=== PATIENT | female | born 1985 | race Caucasian/White ===

== ENCOUNTER → 2019-03-05 | Outpatient (CLI) | payer OTHER ==
[2019-03-05 11:07] LABS: Basophils # (auto) 0.1 uL; Eosinophils # (auto) 0.3 uL; Lymphocytes # (auto) 1.2 uL; Lymphocytes % (auto) 26.8 % (10.0-50.0)
[2019-03-05 11:09] LABS: Basophils % (auto) 2.3 % (0.0-2.0); Eosinophils % (auto) 6.1 % (0.0-7.0); Hematocrit 42.9 % (36.0-46.0); Hemoglobin 14.5 g/dL (12.2-16.2); Mean Corpuscular Hemoglobin 34.3 pg (28.0-32.0); Mean Corpuscular Hgb Conc. 33.7 g/dL (32.0-36.0); Mean Corpuscular Volume 101.9 fL (80.0-100.0); Monocytes # (auto) 0.4 uL; Monocytes % (auto) 7.7 % (0.0-12.0); Neutrophils # (auto) 2.6 uL; Neutrophils % (auto) 57.1 % (37.0-80.0); Platelet Count (auto) 214 10^3/uL (140-450); Red Blood Cells 4.21 10^6/uL (4.0-5.20); Red Cell Distribution Width 13.5 % (11.8-14.3); White Blood Cell 4.6 10^3/uL (4.4-10.8)
[2019-03-05 11:22] LABS: Urine Bacteria NONE SEEN /hpf (None Seen); Urine Blood Negative /uL (Negative); Urine Specific Gravity 1.019 (1.001-1.035); Urine WBC 1 /hpf (0 - 5)
[2019-03-05 13:23] LABS: Albumin 3.7 g/dL (3.4-5.0); Potassium 4.2 mmol/L (3.5-5.1)
[2019-03-05 13:28] LABS: BUN/Creatinine Ratio 22.4; Bilirubin, Total 0.5 mg/dL (0.2-1.0); Total Protein 7.1 g/dL (6.4-8.2)
== END | disposition home or self-care (01) ==
LOC: LAB 09:10
PROVIDERS: ATTEND Family Medicine
DX: K52.9 Noninfective gastroenteritis and colitis, unspecified (principal); K20.9 Esophagitis, unspecified; K21.9 Gastro-esophageal reflux disease without esophagitis; Z83.3 Family history of diabetes mellitus; Z86.39 Personal history of other endocrine, nutritional and metabolic disease
CPT/HCPCS: 36415; 80053; 80061; 81001; 83036; 84443; 85025

== ENCOUNTER → 2019-03-27 | Outpatient (CLI) | payer OTHER ==
[2019-03-27 10:50] LABS: Basophils # (auto) 0.1 uL; Eosinophils # (auto) 0.2 uL; Eosinophils % (auto) 4.1 % (0.0-7.0); Monocytes # (auto) 0.4 uL; Platelet Count (auto) 206 10^3/uL (140-450)
[2019-03-27 10:52] LABS: Basophils % (auto) 1.8 % (0.0-2.0); Hemoglobin 15.1 g/dL (12.2-16.2); Lymphocytes % (auto) 18.3 % (10.0-50.0); Mean Corpuscular Hemoglobin 34.2 pg (28.0-32.0); Mean Corpuscular Hgb Conc. 33.5 g/dL (32.0-36.0); Mean Corpuscular Volume 102.3 fL (80.0-100.0); Monocytes % (auto) 7.7 % (0.0-12.0); Neutrophils # (auto) 3.8 uL; Neutrophils % (auto) 68.1 % (37.0-80.0); Red Cell Distribution Width 13.8 % (11.8-14.3); White Blood Cell 5.5 10^3/uL (4.4-10.8)
[2019-03-27 13:49] LABS: Leuteinizing Hormone 9.9 IU/L
[2019-03-27 13:50] LABS: Follicle Stimulating Hormone 11.4 IU/L (SEE BELOW)
== END | disposition home or self-care (01) ==
LOC: LAB 10:13
PROVIDERS: ATTEND Obstetrics & Gynecology
DX: N93.9 Abnormal uterine and vaginal bleeding, unspecified (principal)
CPT/HCPCS: 36415; 82670; 83001; 83002; 84403; 84443; 85025

== ENCOUNTER 2019-07-26 08:37 | Day surgery (SDC) | payer OTHER ==
[2019-07-19 10:04] LABS: Basophils # (auto) 0.1 uL; Basophils % (auto) 1.3 % (0.0-2.0); Eosinophils # (auto) 0.4 uL; Neutrophils # (auto) 3.5 uL
[2019-07-19 10:06] LABS: Eosinophils % (auto) 6.7 % (0.0-7.0); Hematocrit 42.8 % (36.0-46.0); Hemoglobin 14.7 g/dL (12.2-16.2); Lymphocytes # (auto) 1.5 uL; Mean Corpuscular Hemoglobin 35.2 pg (28.0-32.0); Mean Corpuscular Hgb Conc. 34.4 g/dL (32.0-36.0); Mean Corpuscular Volume 102.6 fL (80.0-100.0); Monocytes # (auto) 0.5 uL; Monocytes % (auto) 8.6 % (0.0-12.0); Neutrophils % (auto) 58.4 % (37.0-80.0); Nucleated Red Blood Cells % 0.1 %; Platelet Count (auto) 196 10^3/uL (140-450); Red Blood Cells 4.17 10^6/uL (4.0-5.20); Red Cell Distribution Width 13.1 % (11.8-14.3); White Blood Cell 5.9 10^3/uL (4.4-10.8)
[2019-07-19 10:21] LABS: INR < 0.93 (0.9-1.15); Partial Thromboplastin Time 29.6 sec (23.64-32.05)
[~2019-07-26] VITALS: Ht 175.3 cm; Wt 66.7 kg
[~2019-07-26 08:37] MED LIST: DEXL30CA4 PO; DIC10C PO; ELUX1TAB2 PO; ONDA-144 PO; PANT40TA2 PO; SUCR1TAB38 PO
[2019-07-26] MEDS ORDERED: SODIUM CHLORIDE LOCK 10 ML ONE (10:09)
[2019-07-26] MEDS ORDERED: diphenhdrAMINE HCL 50 MG/1 ML VL ONE (10:10)
[2019-07-26] MEDS ORDERED: LIDOCAINE VISCOUS 2% 15ML UD ONE (10:18)
[2019-07-26] MEDS: fentaNYL CITRATE 100 MCG/2 ML VL ONE ×2 (10:36→10:39)
[2019-07-26] MEDS: MIDAZOLAM HCL 5 MG/ML-1ML VIAL ONE ×2 (10:36→10:39)
[2019-07-26 11:19] VITALS: BP 116/86
== END 2019-07-26 11:27 | disposition home or self-care (01) ==
LOC: GI 08:37
PROVIDERS: ATTEND Internal Medicine Gastroenterology
DX: K92.0 Hematemesis (principal); K29.50 Unspecified chronic gastritis without bleeding; K21.9 Gastro-esophageal reflux disease without esophagitis; K58.2 Mixed irritable bowel syndrome; K29.80 Duodenitis without bleeding; Z79.899 Other long term (current) drug therapy
CPT/HCPCS: 36415; 43239; 81025; 85025; 85610; 85730; 88305; 88342; J1200; J2250; J3010; J7030

== ENCOUNTER 2019-08-02 05:50 | Day surgery (SDC) | payer OTHER ==
[2019-07-31 10:27] LABS: Basophils # (auto) 0.1 uL; Eosinophils # (auto) 0.3 uL; Eosinophils % (auto) 5.8 % (0.0-7.0); Hemoglobin 13.7 g/dL (12.2-16.2); Lymphocytes # (auto) 1.6 uL; Monocytes # (auto) 0.4 uL; Nucleated Red Blood Cells % 0.1 %; Red Cell Distribution Width 12.7 % (11.8-14.3)
[2019-07-31 10:30] LABS: Basophils % (auto) 1.4 % (0.0-2.0); Hematocrit 40.3 % (36.0-46.0); Lymphocytes % (auto) 29.2 % (10.0-50.0); Mean Corpuscular Hemoglobin 35.1 pg (28.0-32.0); Mean Corpuscular Hgb Conc. 34.1 g/dL (32.0-36.0); Mean Corpuscular Volume 102.9 fL (80.0-100.0); Monocytes % (auto) 7.9 % (0.0-12.0); Neutrophils % (auto) 55.7 % (37.0-80.0); Platelet Count (auto) 201 10^3/uL (140-450); Red Blood Cells 3.92 10^6/uL (4.0-5.20); White Blood Cell 5.3 10^3/uL (4.4-10.8)
[2019-07-31 10:31] LABS: Urine Amorphous Crystal MOD /hpf (None Seen); Urine Bacteria NONE SEEN /hpf (None Seen); Urine Blood Negative /uL (Negative); Urine Specific Gravity 1.021 (1.001-1.035); Urine WBC 2 /hpf (0 - 5)
[2019-07-31 10:37] LABS: INR 1.02 (0.9-1.15); Partial Thromboplastin Time 30.4 sec (23.64-32.05)
[2019-07-31 10:59] LABS: Potassium 3.7 mmol/L (3.5-5.1)
[2019-07-31 11:08] LABS: Albumin 3.8 g/dL (3.4-5.0); BUN/Creatinine Ratio 23.4; Bilirubin, Total 0.5 mg/dL (0.2-1.0); Calcium 8.7 mg/dL (8.5-10.1); Total Protein 6.9 g/dL (6.4-8.2)
[~2019-08-02] VITALS: Ht 175.3 cm; Wt 65.8 kg
[2019-08-02] MEDS ORDERED: ceFAZolin 1GM/50ML 50 ML IV ONE (06:49)
[2019-08-02] MEDS ORDERED: LIDOCAINE 1% (LOCAL ANESTH.) PF 5ml SDV ONE (07:19)
[2019-08-02] MEDS ORDERED: SUCCINYLCHOLINE CHLORIDE 20 MG/ML 10ML VIAL IV ONE (07:20)
[2019-08-02] MEDS ORDERED: PROPOFOL 10 MG/ML 20 ML IV ONE (07:24)
[2019-08-02] MEDS ORDERED: ROCURONIUM 10MG/ML 10ML VIAL IV ONE (07:24)
[2019-08-02] MEDS ORDERED: MIDAZOLAM HCL 1MG/1ML-2 ML VIAL ONE (07:24)
[2019-08-02] MEDS ORDERED: ONDANSETRON HCL 4 MG/2 ML VIAL IV PRN ×2 (07:30→08:15)
[2019-08-02] MEDS ORDERED: HYDROmorphone HCL 2 MG/ML VL IV PRN ×2 (07:30)
[2019-08-02] MEDS ORDERED: NALOXONE HCL 0.4 MG/ML VIAL IV PRN (07:30)
[2019-08-02] MEDS ORDERED: METOCLOPRAMIDE HCL 5MG/ml INJ 2ml VIAL ONE (07:34)
[2019-08-02] MEDS ORDERED: fentaNYL CITRATE 100 MCG/2 ML VL ONE (07:48)
[2019-08-02] MEDS ORDERED: GLYCOPYRROLATE 0.2 MG/ML 1ML VIAL ONE (08:07)
[2019-08-02] MEDS ORDERED: NEOSTIGMINE 1 MG/ML INJ (10mg/10ML VIAL) ONE (08:07)
[2019-08-02] MEDS ORDERED: LACTATED RINGER'S 1,000 ML IV SCH (08:13)
[2019-08-02 08:46] VITALS: BP 139/85
== END 2019-08-02 09:00 | disposition home or self-care (01) ==
LOC: SUR 05:50
PROVIDERS: ATTEND Obstetrics & Gynecology
DX: N93.8 Other specified abnormal uterine and vaginal bleeding (principal); F17.210 Nicotine dependence, cigarettes, uncomplicated
CPT/HCPCS: 36415; 58563; 80053; 81001; 84702; 85025; 85610; 85730; 86850; 86900; 86901; 88305; J0330; J0690; J2250; J2704; J2765; J3010

== ENCOUNTER 2019-11-26 16:08 | Inpatient (IN) | payer OTHER ==
[~2019-11-26] VITALS: Ht 175.3 cm; Wt 70.4 kg
[~2019-11-26 16:08] MED LIST changes: -DIC10C PO
[2019-11-26] MEDS ORDERED: MORPHINE SULFATE 4 MG/ML SYR/VIAL IV ONE (17:15)
[2019-11-26] MEDS ORDERED: SODIUM CHLORIDE 0.9% 1,000 ML IV ONE (17:15)
[2019-11-26] MEDS ORDERED: ONDANSETRON HCL 4 MG/2 ML VIAL IV ONE (17:15)
[2019-11-26 17:27] LABS: Basophils # (auto) 0.1 10 ^3/uL (0-0.2); Basophils % (auto) 1.2 % (0.0-2.0); Lymphocytes # (auto) 1.7 10 ^3/uL (0.4-5.4); Neutrophils # (auto) 3.5 10 ^3/uL (1.6-8.6); Nucleated Red Blood Cells % 0.1 %; Platelet Count (auto) 199 10^3/uL (140-450)
[2019-11-26 17:27] LABS: Urine Bacteria NONE SEEN /hpf (None Seen); Urine Blood Negative /uL (Negative); Urine Mucus FEW (None Seen); Urine Specific Gravity 1.017 (1.001-1.035); Urine WBC 1 /hpf (0 - 5)
[2019-11-26 17:29] LABS: Eosinophils # (auto) 0.3 10 ^3/uL (0-0.8); Eosinophils % (auto) 4.2 % (0.0-7.0); Hematocrit 43.2 % (36.0-46.0); Hemoglobin 14.9 g/dL (12.2-16.2); Lymphocytes % (auto) 28.7 % (10.0-50.0); Mean Corpuscular Hemoglobin 35.4 pg (28.0-32.0); Mean Corpuscular Hgb Conc. 34.5 g/dL (32.0-36.0); Mean Corpuscular Volume 102.6 fL (80.0-100.0); Monocytes # (auto) 0.5 10 ^3/uL (0-1.3); Monocytes % (auto) 7.6 % (0.0-12.0); Neutrophils % (auto) 58.3 % (37.0-80.0); Red Blood Cells 4.21 10^6/uL (4.0-5.20); Red Cell Distribution Width 12.7 % (11.8-14.3)
[2019-11-26 17:45] LABS: Albumin 4.2 g/dL (3.4-5.0); Calcium 8.7 mg/dL (8.5-10.1); Potassium 3.6 mmol/L (3.5-5.1)
[2019-11-26 17:48] LABS: BUN/Creatinine Ratio 11.6; Bilirubin, Total 0.6 mg/dL (0.2-1.0); Total Protein 7.7 g/dL (6.4-8.2)
[2019-11-26] MEDS ORDERED: HYDROcodone-ACET 5/325MG TAB PO PRN (21:15)
[2019-11-26] MEDS ORDERED: TEMAZEPAM 15 MG CAP PO PRN (21:15)
[2019-11-26] MEDS ORDERED: MORPHINE SULF INJ 2 MG/ML SYRINGE 1ML IV PRN (21:15)
[2019-11-26] MEDS ORDERED: ONDANSETRON HCL 4 MG/2 ML VIAL IV PRN (21:15)
[2019-11-26] MEDS ORDERED: ACETAMINOPHEN 325 MG TAB PO PRN (21:15)
[2019-11-26 22:50] VITALS: BP 107/65
--- NOTE | 2019-11-26 22:50 | NUR ---
MS admit from [facility] admitted to tele/MS unit. Patient accompanied by friend Ted via wheelchair. Patient transferred from wheelchair to bed with steady gait. Patient oriented to TUNG MACE, primary RN, unit, room, bed, and unit policies regarding patient care and visiting hours. Patient weighed by bedscale and encouraged to call as needed. All questions and concerns addressed, patient verbalized understanding. Bed is locked in lowest position, side rails x 2 are up, call light is within reach, and seizure precautions in place.
[2019-11-26] MEDS: FAMOTIDINE 20 MG TAB PO SCH (23:34)
[2019-11-27] MEDS ORDERED: SUCR1SUS5 PO (00:56)
[2019-11-27] MEDS ORDERED: [UNRECOGNIZED DRUG - CODE] PO (00:56)
[2019-11-27] MEDS ORDERED: LACT30003 PO ×2 (00:56)
[2019-11-27] MEDS ORDERED: LEVE250T18 PO (00:56)
[2019-11-27] MEDS ORDERED: PANT40TA2 PO (00:56)
[2019-11-27 05:00] VITALS: BP 95/52
[2019-11-27 06:06] VITALS: BP 103/69
--- NOTE | 2019-11-27 06:10 | NUR ---
Pain Patient is complaining of pressure like pain to right upper abdomen (pain scale 3/10). Patient offered pain medications, patient refused pain medications and requested a heating pack instead. Heating pack provided to patient.
[2019-11-27 06:49] LABS: Basophils # (auto) 0.1 10 ^3/uL (0-0.2); Eosinophils # (auto) 0.3 10 ^3/uL (0-0.8); Lymphocytes # (auto) 1.2 10 ^3/uL (0.4-5.4); Monocytes # (auto) 0.4 10 ^3/uL (0-1.3); Neutrophils # (auto) 3.2 10 ^3/uL (1.6-8.6); White Blood Cell 5.2 10^3/uL (4.4-10.8)
[2019-11-27 06:53] LABS: Basophils % (auto) 1.4 % (0.0-2.0); Eosinophils % (auto) 5.2 % (0.0-7.0); Hemoglobin 14.3 g/dL (12.2-16.2); Lymphocytes % (auto) 23.5 % (10.0-50.0); Mean Corpuscular Hemoglobin 35.6 pg (28.0-32.0); Mean Corpuscular Hgb Conc. 34.2 g/dL (32.0-36.0); Mean Corpuscular Volume 104.3 fL (80.0-100.0); Monocytes % (auto) 8.1 % (0.0-12.0); Neutrophils % (auto) 61.8 % (37.0-80.0); Nucleated Red Blood Cells % 0.1 %; Platelet Count (auto) 179 10^3/uL (140-450); Red Blood Cells 4.02 10^6/uL (4.0-5.20); Red Cell Distribution Width 12.6 % (11.8-14.3)
[2019-11-27 07:06] LABS: BUN/Creatinine Ratio 11.7; Calcium 8.4 mg/dL (8.5-10.1); Potassium 4.3 mmol/L (3.5-5.1)
--- NOTE | 2019-11-27 07:30 | NUR ---
Opening Shift Note Assumed care of patient, awake and alert. No S/S of distress/SOB or pain. Bed in lowest and locked position with side rails up x2 and call light with in reach. Instructed on POC and to call for assist PRN, will continue to monitor for changes Q1hr and PRN.
[2019-11-27 09:43] VITALS: BP 100/62
[2019-11-27] MEDS: FAMOTIDINE 20 MG TAB PO SCH (10:51)
[2019-11-27] MEDS ORDERED: PANTOPRAZOLE 40 MG TAB PO ONE (12:00)
[2019-11-27 13:00] VITALS: BP 121/62
[2019-11-27 14:19] LABS: Alcohol, Urine < 3.0 mg/dL (0-5); Amphetamine Screen, Urine NEGATIVE (NEGATIVE); Barbiturate Scree,Urine NEGATIVE (NEGATIVE); Benzodiazephine Screen, Urine NEGATIVE (NEGATIVE); Cannabinoid Screen, Urine NEGATIVE (NEGATIVE); Cocaine Screen, Urine NEGATIVE (NEGATIVE); Opiate Scree,Urine NEGATIVE (NEGATIVE); Phencyclidine Screen, Urine NEGATIVE (NEGATIVE)
[2019-11-27] MEDS: D5W/ SOD CHL 0.9%/KCL 20MEQ 1,000 ML IV SCH (16:30)
[2019-11-27 16:57] VITALS: BP 106/61
--- NOTE | 2019-11-27 19:00 | NUR ---
Opening Shift Note Assumed care of patient, awake and alert. No S/S of distress/SOB or pain. Instructed on POC and to call for assist PRN, will continue to monitor for changes Q1hr and PRN.
[2019-11-27] MEDS: levETIRAcetam 500 MG TAB PO SCH (21:52)
[2019-11-27] MEDS: PANTOPRAZOLE 40 MG TAB PO SCH (21:53)
[2019-11-27 22:21] VITALS: BP 102/65
[2019-11-28] MEDS: D5W/ SOD CHL 0.9%/KCL 20MEQ 1,000 ML IV SCH ×2 (01:21→14:25)
[2019-11-28 05:11] VITALS: BP 106/65
[2019-11-28 09:00] VITALS: BP 114/70
[2019-11-28] MEDS: levETIRAcetam 500 MG TAB PO SCH (09:01)
[2019-11-28] MEDS ORDERED: SODIUM CHLORIDE LOCK 10 ML ONE (09:21)
[2019-11-28] MEDS ORDERED: LIDOCAINE VISCOUS 2% 15ML UD ONE (09:21)
[2019-11-28] MEDS ORDERED: diphenhdrAMINE HCL 50 MG/1 ML VL ONE (09:22)
[2019-11-28] MEDS: PANTOPRAZOLE 40 MG TAB PO SCH (10:00)
[2019-11-28 10:17] LABS: INR 1.07 (0.9-1.15); Partial Thromboplastin Time 30.9 sec (23.64-32.05)
--- NOTE | 2019-11-28 10:30 | NUR ---
PATIENT TAKEN TO PRE-OP.
[2019-11-28] MEDS: MIDAZOLAM HCL 5 MG/ML-1ML VIAL ONE ×2 (10:41→10:44)
[2019-11-28] MEDS: fentaNYL CITRATE 100 MCG/2 ML VL ONE ×2 (10:41→10:44)
--- NOTE | 2019-11-28 11:00 | NUR ---
RECEIVED REPORT FROM POST OP. AWAITING PT ARRIVAL.
[2019-11-28] MEDS ORDERED: SUCRALFATE 1 GM/10 ML ORAL SUSP PO SCH (11:30)
--- NOTE | 2019-11-28 11:30 | NUR ---
SPOKE TO DR. JAIN. PER DR. JAIN, SHE SPOKE TO DR. FAROOQ AND THE PATIENT IS CLEAR FOR DISCHARGE FROM DR. FAROOQ.
[2019-11-28] MEDS ORDERED: SUCR1TAB38 OR (11:46)
[2019-11-28] MEDS ORDERED: KEP500T PO (11:46)
[2019-11-28] MEDS ORDERED: PANT40T PO (11:46)
[2019-11-28 12:54] VITALS: BP 114/70
[2019-11-28 13:00] VITALS: BP 111/70
--- NOTE | 2019-11-28 14:23 | NUR ---
Discharge instructions given as ordered. Encourage to follow up with PMD as instructed. All questions and concerns addressed. Patient verbalized understanding. Medication reconciliation form completed and copy given to patient. No Home medications held in Pharmacy. Pt refused vaccines. IV removed with catheter intact, pressure dressing applied.
--- NOTE | 2019-11-28 14:38 | NUR ---
Patient refused wheelchair and assistance. Patient walked off unit with all personal belongings, accompanied by family member. No distress noted at time of departure.
== END 2019-11-28 14:38 | disposition home or self-care (01) | DRG 392 ==
LOC: ER 16:08 → OVERFLOW 16:09 → EAST 22:50
PROVIDERS: ADMIT Nurse Practitioner; ATTEND Internal Medicine
PROC: 0DB68ZX Excision of Stomach, Via Natural or Artificial Opening Endoscopic, Diagnostic (ICD-10-PCS; principal; 2019-11-28 10:38)
DX: K29.70 Gastritis, unspecified, without bleeding (principal); R16.0 Hepatomegaly, not elsewhere classified; K58.9 Irritable bowel syndrome, unspecified; E16.2 Hypoglycemia, unspecified; Z88.8 Allergy status to other drugs, medicaments and biological substances; Z91.040 Latex allergy status; Z82.49 Family history of ischemic heart disease and other diseases of the circulatory system
CPT/HCPCS: 36415; 43239; 74176; 76705; 78226; 80048; 80053; 80307; 81001; 82150; 83690; 84702; 85025; 85610; 85730; 96360; G0378; J2250

== ENCOUNTER 2019-11-30 18:39 | Emergency (ER) | payer OTHER ==
[~2019-11-30 18:39] MED LIST changes: -DEXL30CA4 PO; +KEP500T PO; +LACT30003 PO; +LEVE250T18 PO; -ONDA-144 PO; +PANT40T PO; +SUCR1SUS5 PO; +SUCR1TAB38 OR; -SUCR1TAB38 PO; +[UNRECOGNIZED DRUG - CODE] PO
[2019-11-30 19:19] LABS: Basophils # (auto) 0.1 10 ^3/uL (0-0.2); Eosinophils # (auto) 0.1 10 ^3/uL (0-0.8); Lymphocytes # (auto) 1.2 10 ^3/uL (0.4-5.4); Platelet Count (auto) 198 10^3/uL (140-450)
[2019-11-30 19:21] LABS: Basophils % (auto) 3.3 % (0.0-2.0); Eosinophils % (auto) 1.8 % (0.0-7.0); Hematocrit 43.7 % (36.0-46.0); Hemoglobin 15.3 g/dL (12.2-16.2); Lymphocytes % (auto) 26.3 % (10.0-50.0); Mean Corpuscular Hemoglobin 35.8 pg (28.0-32.0); Mean Corpuscular Hgb Conc. 35.1 g/dL (32.0-36.0); Mean Corpuscular Volume 102.1 fL (80.0-100.0); Monocytes # (auto) 0.2 10 ^3/uL (0-1.3); Monocytes % (auto) 5.2 % (0.0-12.0); Neutrophils # (auto) 2.9 10 ^3/uL (1.6-8.6); Neutrophils % (auto) 63.4 % (37.0-80.0); Nucleated Red Blood Cells % 0.1 %; Red Blood Cells 4.28 10^6/uL (4.0-5.20); Red Cell Distribution Width 12.9 % (11.8-14.3); White Blood Cell 4.5 10^3/uL (4.4-10.8)
[2019-11-30 19:41] LABS: Calcium 8.9 mg/dL (8.5-10.1); Potassium 4.2 mmol/L (3.5-5.1)
[2019-11-30 19:44] LABS: BUN/Creatinine Ratio 14.6; Bilirubin, Total 0.3 mg/dL (0.2-1.0); Total Protein 7.5 g/dL (6.4-8.2)
[2019-12-01 02:22] LABS: Urine Pregnacy Test Negative (Negative)
[2019-12-01 02:31] LABS: Urine Bacteria NONE SEEN /hpf (None Seen); Urine Blood Negative /uL (Negative); Urine Mucus FEW (None Seen); Urine Specific Gravity 1.027 (1.001-1.035); Urine WBC 3 /hpf (0 - 5)
[2019-12-01 02:33] LABS: Amphetamine Screen, Urine NEGATIVE (NEGATIVE); Barbiturate Scree,Urine NEGATIVE (NEGATIVE); Benzodiazephine Screen, Urine POSITIVE (NEGATIVE); Cannabinoid Screen, Urine NEGATIVE (NEGATIVE); Cocaine Screen, Urine NEGATIVE (NEGATIVE); Opiate Scree,Urine NEGATIVE (NEGATIVE); Phencyclidine Screen, Urine NEGATIVE (NEGATIVE)
[2019-12-01] MEDS ORDERED: PROMETHAZINE HCL 25 MG/ML 1ML IV ONE (03:15)
[2019-12-01] MEDS ORDERED: SODIUM CHLORIDE 0.9% 2,000 ML IV ONE (03:15)
[2019-12-01] MEDS ORDERED: IOHEXOL 300 MG/ML 100ML BOTTLE IJ ONE (03:17)
[2019-12-01 05:00] VITALS: BP 115/64
== END 2019-12-01 06:00 | disposition home or self-care (01) ==
LOC: ER 18:42
DX: K29.00 Acute gastritis without bleeding (principal); E86.0 Dehydration; K59.00 Constipation, unspecified; R11.2 Nausea with vomiting, unspecified; E11.9 Type 2 diabetes mellitus without complications; K50.90 Crohn's disease, unspecified, without complications; Z91.011 Allergy to milk products; Z91.040 Latex allergy status; Z79.899 Other long term (current) drug therapy
CPT/HCPCS: 36415; 74177; 80053; 80307; 81001; 81025; 85025; 96361; 96374; 99285; J7030

== ENCOUNTER → 2020-05-29 | Outpatient (CLI) | payer OTHER ==
[~2020-05-29] MED LIST changes: +SUCR1TAB22 OR; -SUCR1TAB38 OR
[2020-05-29 15:00] LABS: Cholesterol 139 mg/dL (< 200)
[2020-05-29 15:03] LABS: HDL Cholesterol 65 mg/dL (40-59); LDL Cholesterol 75 mg/dL (< 100); Triglycerides 152 mg/dL (< 150)
== END | disposition home or self-care (01) ==
LOC: LAB 13:57
PROVIDERS: ATTEND Internal Medicine
DX: E11.9 Type 2 diabetes mellitus without complications (principal)
CPT/HCPCS: 36415; 80061; 82043; 82607; 83036

== ENCOUNTER 2020-11-22 17:29 | Emergency (ER) | payer BC, OTHER ==
[~2020-11-22] VITALS: Ht 177.8 cm; Wt 64.9 kg
[2020-11-22 18:35] LABS: Basophils # (auto) 0.1 10 ^3/uL (0-0.2); Basophils % (auto) 1.7 % (0.0-2.0); Eosinophils # (auto) 0.2 10 ^3/uL (0-0.8); Eosinophils % (auto) 4.1 % (0.0-7.0); Hematocrit 41.5 % (36.0-46.0); Hemoglobin 14.4 g/dL (12.2-16.2); Lymphocytes % (auto) 21.1 % (10.0-50.0); Mean Corpuscular Hemoglobin 36.3 pg (28.0-32.0); Mean Corpuscular Hgb Conc. 34.6 g/dL (32.0-36.0); Mean Corpuscular Volume 104.8 fL (80.0-100.0); Monocytes # (auto) 0.6 10 ^3/uL (0-1.3); Monocytes % (auto) 12.5 % (0.0-12.0); Neutrophils # (auto) 2.8 10 ^3/uL (1.6-8.6); Neutrophils % (auto) 60.6 % (37.0-80.0); Platelet Count (auto) 183 10^3/uL (140-450); Red Blood Cells 3.96 10^6/uL (4.0-5.20); Red Cell Distribution Width 12.6 % (11.8-14.3); White Blood Cell 4.6 10^3/uL (4.4-10.8)
[2020-11-22 18:51] LABS: Chloride 108 mmol/L (98-107); Potassium 4.2 mmol/L (3.5-5.1); Sodium 141 mmol/L (136-145)
[2020-11-22 19:01] LABS: Alanine Aminotransferase 30 U/L (13-56); Albumin 3.8 g/dL (3.4-5.0); Alkaline Phosphatase 71 U/L (45-117); Anion Gap 8 (5-15); Aspartate Aminotransferase 25 U/L (15-37); BUN/Creatinine Ratio 15.3; Bilirubin, Total 0.2 mg/dL (0.2-1.0); Blood Urea Nitrogen 9 mg/dL (7-18); Calcium 8.4 mg/dL (8.5-10.1); Carbon Dioxide 25 mmol/L (21-32); GFR African American 149 mL/min; GFR Non-African American 123 mL/min; Glucose 80 mg/dL (74-106); Total Protein 7.6 g/dL (6.4-8.2)
[2020-11-22] MEDS ORDERED: CYANOCOBALAMIN (B-12) 1000 MCG/1 ML VIAL SUBCUT ONE (20:00)
[2020-11-22 23:02] VITALS: BP 117/77
== END 2020-11-23 00:01 | disposition home or self-care (01) ==
LOC: ER 17:29
DX: G62.9 Polyneuropathy, unspecified (principal)
CPT/HCPCS: 36415; 70450; 80053; 83880; 84484; 85025; 85379

== ENCOUNTER → 2020-12-24 | Day surgery (SDC) | payer BC ==
[2020-12-21 09:52] LABS: Basophils # (auto) 0.1 10 ^3/uL (0-0.2); Eosinophils # (auto) 0.3 10 ^3/uL (0-0.8); Lymphocytes # (auto) 1.4 10 ^3/uL (0.4-5.4); Monocytes # (auto) 0.5 10 ^3/uL (0-1.3); Neutrophils # (auto) 3.8 10 ^3/uL (1.6-8.6)
[2020-12-21 09:54] LABS: Basophils % (auto) 1.3 % (0.0-2.0); Eosinophils % (auto) 5.4 % (0.0-7.0); Hematocrit 39.6 % (36.0-46.0); Hemoglobin 13.9 g/dL (12.2-16.2); Lymphocytes % (auto) 23.3 % (10.0-50.0); Mean Corpuscular Hemoglobin 36.3 pg (28.0-32.0); Mean Corpuscular Volume 103.7 fL (80.0-100.0); Monocytes % (auto) 8.2 % (0.0-12.0); Neutrophils % (auto) 61.8 % (37.0-80.0); Nucleated Red Blood Cells % 0.1 %; Platelet Count (auto) 210 10^3/uL (140-450); Red Blood Cells 3.82 10^6/uL (4.0-5.20); Red Cell Distribution Width 12.7 % (11.8-14.3); White Blood Cell 6.2 10^3/uL (4.4-10.8)
[2020-12-21 10:21] LABS: INR 0.93 (0.9-1.15); Partial Thromboplastin Time 31.2 sec (23.0-31.2)
[2020-12-21 11:01] LABS: Urine Bacteria NONE SEEN /hpf (None Seen); Urine Blood Negative /uL (Negative); Urine Specific Gravity 1.007 (1.001-1.035); Urine WBC 1 /hpf (0 - 5)
[2020-12-21 11:41] LABS: Albumin 4.1 g/dL (3.4-5.0); Calcium 9.4 mg/dL (8.5-10.1); Potassium 3.7 mmol/L (3.5-5.1)
[2020-12-21 11:46] LABS: Bilirubin, Total 0.3 mg/dL (0.2-1.0); Total Protein 7.6 g/dL (6.4-8.2)
[2020-12-21 15:52] LABS: BUN/Creatinine Ratio 29.8
[~2020-12-24] VITALS: Ht 175.3 cm; Wt 63.0 kg
[~2020-12-24] MED LIST changes: +ACCU-CHEK COMFORT CURVE STRIP VI ONE; +DOXAPRAM HCL 20 MG/ML 20ML VIAL INJ IV ONE; +GLYCOPYRROLATE 0.2 MG/ML 1ML VIAL ONE; +HYDROmorphone HCL 2 MG/ML VL IV PRN; -KEP500T PO; -LEVE250T18 PO; +LIDOCAINE 1% HCL (LOCAL ANESTH.) INJ 20ML MDV ONE; +MEPERIDINE HCL (25 MG/ML) 1ML VIAL ONE; +MIDAZOLAM HCL 1MG/1ML-2 ML VIAL ONE; +MORPHINE SULFATE 4 MG/ML SYR/VIAL IV PRN; +NEOSTIGMINE 1 MG/ML INJ (10mg/10ML VIAL) ONE; +ONDA-180 PO; +ONDANSETRON HCL 4 MG/2 ML VIAL IV PRN; +ONDANSETRON HCL 4 MG/2 ML VIAL ONE; -PANT40TA2 PO; +ROCURONIUM 10MG/ML 10ML VIAL IV ONE; +SODIUM CHLORIDE LOCK 10 ML ONE; +SUCCINYLCHOLINE CHLORIDE 20 MG/ML 10ML VIAL IV ONE; -SUCR1SUS5 PO; +fentaNYL CITRATE 100 MCG/2 ML VL IV PRN; +fentaNYL CITRATE 100 MCG/2 ML VL ONE
[2020-12-24 08:55] VITALS: BP 113/67
== END | disposition home or self-care (01) ==
LOC: SUR 06:11
PROVIDERS: ATTEND Otolaryngology
DX: J03.91 Acute recurrent tonsillitis, unspecified (principal); J35.01 Chronic tonsillitis; K21.9 Gastro-esophageal reflux disease without esophagitis; E11.9 Type 2 diabetes mellitus without complications; Z20.822 Contact with and (suspected) exposure to COVID-19; Z98.890 Other specified postprocedural states; Z88.1 Allergy status to other antibiotic agents; Z91.040 Latex allergy status; Z79.899 Other long term (current) drug therapy; Z86.16 Personal history of COVID-19
CPT/HCPCS: 36415; 42826; 80053; 81001; 84702; 85025; 85610; 85730; J0330; J2001; J2175; J2250; J2405; J3010; U0003

== ENCOUNTER → 2021-10-21 | Outpatient (CLI) | payer OTHER, BC ==
[~2021-10-21] MED LIST changes: -ACCU-CHEK COMFORT CURVE STRIP VI ONE; -DOXAPRAM HCL 20 MG/ML 20ML VIAL INJ IV ONE; -GLYCOPYRROLATE 0.2 MG/ML 1ML VIAL ONE; -HYDROmorphone HCL 2 MG/ML VL IV PRN; -LIDOCAINE 1% HCL (LOCAL ANESTH.) INJ 20ML MDV ONE; -MEPERIDINE HCL (25 MG/ML) 1ML VIAL ONE; -MIDAZOLAM HCL 1MG/1ML-2 ML VIAL ONE; -MORPHINE SULFATE 4 MG/ML SYR/VIAL IV PRN; -NEOSTIGMINE 1 MG/ML INJ (10mg/10ML VIAL) ONE; -ONDANSETRON HCL 4 MG/2 ML VIAL IV PRN; -ONDANSETRON HCL 4 MG/2 ML VIAL ONE; -ROCURONIUM 10MG/ML 10ML VIAL IV ONE; -SODIUM CHLORIDE LOCK 10 ML ONE; -SUCCINYLCHOLINE CHLORIDE 20 MG/ML 10ML VIAL IV ONE; -fentaNYL CITRATE 100 MCG/2 ML VL IV PRN; -fentaNYL CITRATE 100 MCG/2 ML VL ONE
[2021-10-21 09:48] LABS: Basophils # (auto) 0.1 10 ^3/uL (0-0.2); Basophils % (auto) 1.2 % (0.0-2.0); Eosinophils # (auto) 0.3 10 ^3/uL (0-0.8); Nucleated Red Blood Cells % 0.1 %
[2021-10-21 09:53] LABS: Eosinophils % (auto) 5.6 % (0.0-7.0); Hematocrit 40.5 % (36.0-46.0); Hemoglobin 13.7 g/dL (12.2-16.2); Lymphocytes # (auto) 1.5 10 ^3/uL (0.4-5.4); Lymphocytes % (auto) 27.6 % (10.0-50.0); Mean Corpuscular Hemoglobin 35.3 pg (28.0-32.0); Mean Corpuscular Hgb Conc. 33.9 g/dL (32.0-36.0); Mean Corpuscular Volume 104.3 fL (80.0-100.0); Monocytes # (auto) 0.5 10 ^3/uL (0-1.3); Monocytes % (auto) 8.6 % (0.0-12.0); Red Blood Cells 3.89 10^6/uL (4.0-5.20); Red Cell Distribution Width 12.1 % (11.8-14.3); White Blood Cell 5.3 10^3/uL (4.4-10.8)
[2021-10-21 10:11] LABS: Albumin 4.1 g/dL (3.4-5.0); Calcium 9.3 mg/dL (8.5-10.1); Potassium 3.9 mmol/L (3.5-5.1)
[2021-10-21 10:16] LABS: BUN/Creatinine Ratio 24.1; Bilirubin, Total 0.4 mg/dL (0.2-1.0); Total Protein 7.5 g/dL (6.4-8.2)
== END | disposition home or self-care (01) ==
LOC: LAB 09:14
PROVIDERS: ATTEND Internal Medicine
DX: Z00.00 Encounter for general adult medical examination without abnormal findings (principal); Z11.9 Encounter for screening for infectious and parasitic diseases, unspecified
CPT/HCPCS: 36415; 80053; 80061; 82043; 83036; 84443; 85025

== ENCOUNTER → 2022-09-14 | Outpatient (CLI) | payer BC ==
[2022-09-14 08:32] LABS: Basophils # (auto) 0.1 10 ^3/uL (0-0.2); Eosinophils # (auto) 0.4 10 ^3/uL (0-0.8); Monocytes # (auto) 0.4 10 ^3/uL (0-1.3); Neutrophils # (auto) 2.9 10 ^3/uL (1.6-8.6); White Blood Cell 5.6 10^3/uL (4.4-10.8)
[2022-09-14 08:37] LABS: Basophils % (auto) 1.1 % (0.0-2.0); Eosinophils % (auto) 6.5 % (0.0-7.0); Hematocrit 39.7 % (36.0-46.0); Hemoglobin 13.8 g/dL (12.2-16.2); Lymphocytes # (auto) 1.8 10 ^3/uL (0.4-5.4); Lymphocytes % (auto) 32.8 % (10.0-50.0); Mean Corpuscular Hemoglobin 36.5 pg (28.0-32.0); Mean Corpuscular Hgb Conc. 34.9 g/dL (32.0-36.0); Mean Corpuscular Volume 104.5 fL (80.0-100.0); Monocytes % (auto) 7.9 % (0.0-12.0); Neutrophils % (auto) 51.7 % (37.0-80.0); Nucleated Red Blood Cells % 0.1 %; Red Cell Distribution Width 12.2 % (11.8-14.3)
[2022-09-14 08:49] LABS: Urine Bacteria FEW /hpf (None Seen); Urine Blood Negative /uL (Negative); Urine Specific Gravity 1.024 (1.001-1.035); Urine WBC <1 /hpf (0 - 5)
[2022-09-14 08:59] LABS: Albumin 4.2 g/dL (3.4-5.0); Calcium 9.5 mg/dL (8.5-10.1); Potassium 3.8 mmol/L (3.5-5.1)
[2022-09-14 09:04] LABS: BUN/Creatinine Ratio 17.3; Bilirubin, Total 0.4 mg/dL (0.2-1.0); Total Protein 7.3 g/dL (6.4-8.2)
== END | disposition home or self-care (01) ==
LOC: LAB 08:14
PROVIDERS: ATTEND Internal Medicine
DX: Z00.00 Encounter for general adult medical examination without abnormal findings (principal); E11.9 Type 2 diabetes mellitus without complications; E53.8 Deficiency of other specified B group vitamins; E78.5 Hyperlipidemia, unspecified
CPT/HCPCS: 36415; 80053; 80061; 81001; 82043; 82607; 83036; 84443; 85025

== ENCOUNTER → 2022-10-21 | Outpatient (CLI) | payer BC ==
[2022-10-21 13:33] LABS: Albumin 4.6 g/dL (3.4-5.0)
[2022-10-21 13:37] LABS: Bilirubin, Direct 0.1 mg/dL (0-0.2); Bilirubin, Total 0.5 mg/dL (0.2-1.0)
== END | disposition home or self-care (01) ==
LOC: LAB 13:15
PROVIDERS: ATTEND Internal Medicine
DX: E78.5 Hyperlipidemia, unspecified (principal)
CPT/HCPCS: 36415; 80076

== ENCOUNTER → 2022-12-15 | Outpatient (CLI) | payer BC ==
[2022-12-15 16:35] LABS: Albumin 3.7 g/dL (3.4-5.0)
[2022-12-15 16:40] LABS: Alanine Aminotransferase 33 U/L (13-56); Alkaline Phosphatase 80 U/L (45-117); Aspartate Aminotransferase 15 U/L (15-37); Bilirubin, Direct < 0.1 mg/dL (0-0.2); Bilirubin, Total 0.2 mg/dL (0.2-1.0); Cholesterol 130 mg/dL (< 200); HDL Cholesterol 53 mg/dL (40-59); LDL Cholesterol 66 mg/dL (< 100); Total Protein 7.1 g/dL (6.4-8.2); Triglycerides 201 mg/dL (< 150)
== END | disposition home or self-care (01) ==
LOC: LAB 15:36
PROVIDERS: ATTEND Internal Medicine
DX: E78.5 Hyperlipidemia, unspecified (principal)
CPT/HCPCS: 36415; 80061; 80076

== ENCOUNTER → 2023-03-15 | Outpatient (CLI) | payer BC ==
[2023-03-15 10:20] LABS: Cholesterol 130 mg/dL (< 200); HDL Cholesterol 54 mg/dL (40-59); LDL Cholesterol 52 mg/dL (< 100); Triglycerides 240 mg/dL (< 150)
== END | disposition home or self-care (01) ==
LOC: LAB 08:32
PROVIDERS: ATTEND Internal Medicine
DX: E11.9 Type 2 diabetes mellitus without complications (principal); E78.5 Hyperlipidemia, unspecified
CPT/HCPCS: 36415; 80061; 83036

== ENCOUNTER 2023-05-11 07:16 | Emergency (ER) | payer BC, OTHER ==
[~2023-05-11] VITALS: Ht 175.3 cm; Wt 75.9 kg
[2023-05-11 08:30] VITALS: BP 144/81; PULSE 108; RESP 18; TEMP 98; O2SAT 95
[2023-05-11] MEDS ORDERED: KETOROLAC TROMETH 60MG/2ML VIAL IM ONE (09:00)
== END 2023-05-11 09:14 | disposition home or self-care (01) ==
LOC: ER 07:16
DX: M23.92 Unspecified internal derangement of left knee (principal); G89.29 Other chronic pain; M25.562 Pain in left knee; F41.9 Anxiety disorder, unspecified; K21.9 Gastro-esophageal reflux disease without esophagitis; E78.5 Hyperlipidemia, unspecified; I10 Essential (primary) hypertension; F17.210 Nicotine dependence, cigarettes, uncomplicated; Z88.1 Allergy status to other antibiotic agents; Z88.8 Allergy status to other drugs, medicaments and biological substances; Z79.899 Other long term (current) drug therapy
CPT/HCPCS: 96372; 99283; J1885

== ENCOUNTER 2023-05-20 16:49 | Emergency (ER) | payer BC ==
[~2023-05-20] VITALS: Ht 175.3 cm; Wt 75.1 kg
[2023-05-20 16:59] VITALS: TEMP 97
[2023-05-20 17:24] LABS: Basophils # (auto) 0.1 10 ^3/uL (0-0.2); Basophils % (auto) 1.3 % (0.0-2.0); Eosinophils # (auto) 0.2 10 ^3/uL (0-0.8); Eosinophils % (auto) 4.7 % (0.0-7.0); Hematocrit 43.9 % (36.0-46.0); Hemoglobin 14.9 g/dL (12.2-16.2); Lymphocytes % (auto) 41.2 % (10.0-50.0); Mean Corpuscular Hemoglobin 34.8 pg (28.0-32.0); Mean Corpuscular Volume 102.4 fL (80.0-100.0); Monocytes # (auto) 0.3 10 ^3/uL (0-1.3); Monocytes % (auto) 6.5 % (0.0-12.0); Neutrophils # (auto) 2.2 10 ^3/uL (1.6-8.6); Neutrophils % (auto) 46.3 % (37.0-80.0); Red Blood Cells 4.29 10^6/uL (4.0-5.20); Red Cell Distribution Width 12.3 % (11.8-14.3); White Blood Cell 4.8 10^3/uL (4.4-10.8)
[2023-05-20 17:43] LABS: Alanine Aminotransferase 30 U/L (7-40); Albumin 4.4 g/dL (3.2-4.8); Alkaline Phosphatase 68 U/L (46-116); Anion Gap 9.6 (5-15); Aspartate Aminotransferase 25 U/L (13-40); BUN/Creatinine Ratio 15.1 (10.0-20.0); Bilirubin, Total 0.3 mg/dL (0.2-1.0); Blood Urea Nitrogen 11 mg/dL (9-23); Carbon Dioxide 21.4 mmol/L (20-30); Chloride 109 mmol/L (98-107); Glucose 136 mg/dL (74-106); Potassium 3.9 mmol/L (3.5-5.1); Sodium 140 mmol/L (136-145)
[2023-05-20] MEDS ORDERED: HYDR-4902 PO (18:30)
[2023-05-20] MEDS ORDERED: DexAMETHasone SOD PHOS 10MG/1ML VIAL INJ IM ONE (18:30)
[2023-05-20] MEDS ORDERED: CYCL-839 PO (18:30)
[2023-05-20] MEDS ORDERED: KETOROLAC TROMETH 30 MG/ML 1ML VIAL IV ONE (18:30)
[2023-05-20] MEDS ORDERED: IBUP1TAB5 PO (18:30)
[2023-05-20] MEDS ORDERED: KETOROLAC TROMETH 60MG/2ML VIAL IM ONE (18:45)
[2023-05-20 19:05] VITALS: BP 133/62; PULSE 87; RESP 18; O2SAT 99
== END 2023-05-20 19:28 | disposition home or self-care (01) ==
LOC: ER 16:49
DX: S86.912A Strain of unspecified muscle(s) and tendon(s) at lower leg level, left leg, initial encounter (principal); G89.29 Other chronic pain; M25.562 Pain in left knee; R60.0 Localized edema; F41.9 Anxiety disorder, unspecified; K21.9 Gastro-esophageal reflux disease without esophagitis; E78.5 Hyperlipidemia, unspecified; I10 Essential (primary) hypertension; F17.210 Nicotine dependence, cigarettes, uncomplicated; Z88.8 Allergy status to other drugs, medicaments and biological substances; Z79.899 Other long term (current) drug therapy; X58.XXXA Exposure to other specified factors, initial encounter; Y93.89 Activity, other specified; Y92.89 Other specified places as the place of occurrence of the external cause; Y99.8 Other external cause status
CPT/HCPCS: 29505; 36415; 80053; 82962; 85025; 93971; 96372; 99285; J1100; J1885

== ENCOUNTER 2023-05-23 18:53 | Inpatient (IN) | payer BC ==
[~2023-05-23] VITALS: Ht 177.8 cm; Wt 83.8 kg
[~2023-05-23 18:53] MED LIST changes: +CYCL-839 PO; +HYDR-4902 PO; +IBUP1TAB5 PO
[2023-05-23 20:42] LABS: Basophils # (auto) 0.1 10 ^3/uL (0-0.2); Eosinophils # (auto) 0.2 10 ^3/uL (0-0.8); Hemoglobin 14.9 g/dL (12.2-16.2); Lymphocytes # (auto) 2.2 10 ^3/uL (0.4-5.4); Mean Corpuscular Hemoglobin 35.4 pg (28.0-32.0); Monocytes # (auto) 0.7 10 ^3/uL (0-1.3); Neutrophils # (auto) 4.7 10 ^3/uL (1.6-8.6); Red Blood Cells 4.21 10^6/uL (4.0-5.20)
[2023-05-23 20:44] LABS: Basophils % (auto) 1.2 % (0.0-2.0); Eosinophils % (auto) 2.2 % (0.0-7.0); Hematocrit 42.5 % (36.0-46.0); Lymphocytes % (auto) 28.3 % (10.0-50.0); Mean Corpuscular Hgb Conc. 35.1 g/dL (32.0-36.0); Mean Corpuscular Volume 100.9 fL (80.0-100.0); Monocytes % (auto) 8.8 % (0.0-12.0); Neutrophils % (auto) 59.5 % (37.0-80.0); Red Cell Distribution Width 12.3 % (11.8-14.3); White Blood Cell 7.8 10^3/uL (4.4-10.8)
[2023-05-23 20:48] LABS: Alanine Aminotransferase 39 U/L (7-40); Albumin 4.6 g/dL (3.2-4.8); Alkaline Phosphatase 110 U/L (46-116); Aspartate Aminotransferase 55 U/L (13-40); BUN/Creatinine Ratio 24.3 (10.0-20.0); Bilirubin, Total 0.5 mg/dL (0.2-1.0); Blood Urea Nitrogen 17 mg/dL (9-23); Calcium 8.9 mg/dL (8.7-10.4); Chloride 104 mmol/L (98-107); Glucose 114 mg/dL (74-106); Potassium 3.8 mmol/L (3.5-5.1); Total Protein 7.3 g/dL (5.7-8.2)
[2023-05-23 20:49] LABS: Sodium 135 mmol/L (136-145)
[2023-05-23 21:08] LABS: CRP High Sensitivity < 0.02 mg/dL (<1.0)
[2023-05-23 21:25] LABS: Erythrocyte Sedimentation Rate 1 mm/hr (0-20)
[2023-05-23 21:34] LABS: Lactic Acid w/Reflex 2.1 mmol/L (0.4-2.0)
[2023-05-23] MEDS ORDERED: SODIUM CHLORIDE 0.9% 1,000 ML IV ONE (22:30)
[2023-05-23] MEDS ORDERED: levoFLOXacin 500MG 100 ML IV ONE (23:45)
[2023-05-23] MEDS ORDERED: ONDANSETRON HCL 4 MG/2 ML VIAL IV PRN (23:45)
[2023-05-23] MEDS ORDERED: HYDROcodone-ACET 5/325MG TAB PO PRN (23:45)
[2023-05-23] MEDS ORDERED: TEMAZEPAM 15 MG CAP PO PRN (23:45)
[2023-05-24] VITALS (8 sets, daily range): BP systolic 117–129; BP diastolic 78–94; PULSE 89–113; RESP 13–20; TEMP 98.1–98.2; O2SAT 96–100
[2023-05-24 01:20] LABS: Urine Bacteria FEW /hpf (None Seen); Urine Blood Negative /uL (Negative); Urine Clarity Clear (Clear); Urine Color Yellow (Yellow); Urine Protein, UAD Negative (Negative); Urine Specific Gravity 1.016 (1.001-1.035); Urine Urobilinogen Normal (Negative); Urine WBC 11 /hpf (0 - 5); Urine pH 5.5 (5.0-8.0)
[2023-05-24 05:55] LABS: Anion Gap 9.1 (5-15); Carbon Dioxide 22.9 mmol/L (20-30); Chloride 105 mmol/L (98-107); Potassium 3.8 mmol/L (3.5-5.1); Sodium 137 mmol/L (136-145)
[2023-05-24 05:56] LABS: Calcium 8.7 mg/dL (8.5-10.1)
[2023-05-24 06:00] LABS: Basophils # (auto) 0 10 ^3/uL (0-0.2); Hemoglobin 14.2 g/dL (12.2-16.2); Lymphocytes % (auto) 30.8 % (10.0-50.0); Monocytes # (auto) 0.4 10 ^3/uL (0-1.3); Neutrophils # (auto) 2.8 10 ^3/uL (1.6-8.6)
[2023-05-24 06:01] LABS: BUN/Creatinine Ratio 17.6 (10.0-20.0); Blood Urea Nitrogen 9 mg/dL (9-23); Glucose 97 mg/dL (74-106)
[2023-05-24 06:03] LABS: Basophils % (auto) 0.9 % (0.0-2.0); Eosinophils # (auto) 0.3 10 ^3/uL (0-0.8); Hematocrit 40.1 % (36.0-46.0); Lymphocytes # (auto) 1.5 10 ^3/uL (0.4-5.4); Mean Corpuscular Hemoglobin 35.4 pg (28.0-32.0); Mean Corpuscular Hgb Conc. 35.3 g/dL (32.0-36.0); Mean Corpuscular Volume 100.4 fL (80.0-100.0); Monocytes % (auto) 7.9 % (0.0-12.0); Neutrophils % (auto) 55.4 % (37.0-80.0); Nucleated Red Blood Cells % 0.2 %
[2023-05-24] MEDS: ACETAMINOPHEN 325 MG TAB PO PRN ×3 (06:46→11:15)
[2023-05-24] MEDS: amLODIPine BESYLATE 5 MG TAB PO SCH (10:00)
[2023-05-24] MEDS: PANTOPRAZOLE 40 MG TAB PO SCH (10:00)
[2023-05-24] MEDS: levETIRAcetam 500 MG TAB PO SCH ×2 (10:00→21:15)
[2023-05-24] MEDS ORDERED: EPIN0.3I24 IM (10:44)
[2023-05-24] MEDS ORDERED: AMLO1TAB22 PO (10:44)
[2023-05-24] MEDS ORDERED: LEVE500T3 PO (10:44)
[2023-05-24] MEDS ORDERED: LEVE250T78 PO (10:44)
[2023-05-24] MEDS ORDERED: SUCR1TAB PO (10:44)
[2023-05-24] MEDS ORDERED: MELO-335 PO (10:44)
[2023-05-24] MEDS ORDERED: ATOR20TA50 PO (10:44)
[2023-05-24] MEDS: ENOXAPARIN SOD 40 MG/0.4 ML SYRINGE SC SCH (11:14)
[2023-05-24] MEDS: IBUPROFEN 600 MG TAB PO SCH ×2 (13:00→21:15)
[2023-05-24] MEDS ORDERED: cefTRIAXone 1GM/50ML D5W 50 ML IV ONE (14:45)
[2023-05-24] MEDS ORDERED: DEXTROSE (50%) 50ML SYRG IV PRN (16:00)
[2023-05-24] MEDS: InsuLIN REG 1unit/0.01ml Soln (100units/ml) SC SCH ×2 (17:00→21:51)
[2023-05-24] MEDS: ACCU-CHEK COMFORT CURVE STRIP VI SCH ×2 (17:35→21:15)
[2023-05-24] MEDS: ATORVASTATIN 20 MG TAB PO SCH (21:15)
[2023-05-24] MEDS ORDERED: levoFLOXacin 500MG 100 ML IV SCH (22:00)
[2023-05-25 05:00] VITALS: BP 114/88; PULSE 79; RESP 16; TEMP 98.2; O2SAT 98
[2023-05-25] MEDS: IBUPROFEN 600 MG TAB PO SCH ×3 (06:12→21:42)
[2023-05-25] MEDS: ACCU-CHEK COMFORT CURVE STRIP VI SCH ×4 (06:12→21:38)
[2023-05-25 06:25] LABS: Chloride 105 mmol/L (98-107); Potassium 3.9 mmol/L (3.5-5.1); Sodium 137 mmol/L (136-145)
[2023-05-25 06:26] LABS: Anion Gap 5.9 (5-15); Carbon Dioxide 26.1 mmol/L (20-30)
[2023-05-25] MEDS: InsuLIN REG 1unit/0.01ml Soln (100units/ml) SC SCH ×4 (06:27→21:42)
[2023-05-25 06:31] LABS: BUN/Creatinine Ratio 17.5 (10.0-20.0); Blood Urea Nitrogen 10 mg/dL (9-23); Glucose 113 mg/dL (74-106)
[2023-05-25 07:09] LABS: Basophils # (auto) 0 10 ^3/uL (0-0.2); Eosinophils # (auto) 0.3 10 ^3/uL (0-0.8); Hemoglobin 13.9 g/dL (12.2-16.2); Lymphocytes % (auto) 33.7 % (10.0-50.0); Mean Corpuscular Hgb Conc. 34.6 g/dL (32.0-36.0); Monocytes # (auto) 0.3 10 ^3/uL (0-1.3); Monocytes % (auto) 8.4 % (0.0-12.0)
[2023-05-25 07:12] LABS: Eosinophils % (auto) 6.5 % (0.0-7.0); Hematocrit 40.1 % (36.0-46.0); Lymphocytes # (auto) 1.3 10 ^3/uL (0.4-5.4); Mean Corpuscular Hemoglobin 35.6 pg (28.0-32.0); Mean Corpuscular Volume 102.8 fL (80.0-100.0); Neutrophils % (auto) 50.4 % (37.0-80.0); Nucleated Red Blood Cells % 0.1 %
[2023-05-25] MEDS: cefTRIAXone 1GM/50ML D5W 50 ML IV SCH (08:29)
[2023-05-25] MEDS: PANTOPRAZOLE 40 MG TAB PO SCH (08:30)
[2023-05-25] MEDS: levETIRAcetam 500 MG TAB PO SCH ×2 (08:30→21:37)
[2023-05-25] MEDS: ENOXAPARIN SOD 40 MG/0.4 ML SYRINGE SC SCH (08:30)
[2023-05-25 09:00] VITALS: BP 134/88; PULSE 77; RESP 18; TEMP 98.5; O2SAT 99
[2023-05-25] MEDS: amLODIPine BESYLATE 5 MG TAB PO SCH (09:01)
[2023-05-25 13:00] VITALS: BP 125/87; PULSE 79; RESP 16; TEMP 98.4; O2SAT 98
[2023-05-25] MEDS ORDERED: FUROSEMIDE 40 MG/4 ML VIAL IV ONE (16:00)
[2023-05-25 17:00] VITALS: BP 131/87; PULSE 100; RESP 18; TEMP 98.4; O2SAT 98
[2023-05-25] MEDS: ATORVASTATIN 20 MG TAB PO SCH (21:37)
[2023-05-25 22:00] VITALS: BP 123/85; PULSE 96; RESP 16; TEMP 97.8; O2SAT 98
[2023-05-26] VITALS (7 sets, daily range): BP systolic 111–124; BP diastolic 68–92; PULSE 96–109; RESP 16–18; TEMP 97.7–98; O2SAT 95–99
[2023-05-26 05:28] LABS: Calcium 9.3 mg/dL (8.7-10.4); Chloride 103 mmol/L (98-107); Potassium 3.8 mmol/L (3.5-5.1); Sodium 136 mmol/L (136-145)
[2023-05-26 05:34] LABS: BUN/Creatinine Ratio 21.9 (10.0-20.0); Blood Urea Nitrogen 14 mg/dL (9-23); Glucose 108 mg/dL (74-106)
[2023-05-26 06:13] LABS: Basophils # (auto) 0.1 10 ^3/uL (0-0.2); Eosinophils # (auto) 0.3 10 ^3/uL (0-0.8); Monocytes # (auto) 0.5 10 ^3/uL (0-1.3); Neutrophils # (auto) 3.1 10 ^3/uL (1.6-8.6); Red Cell Distribution Width 12.6 % (11.8-14.3)
[2023-05-26 06:16] LABS: Eosinophils % (auto) 5.6 % (0.0-7.0); Hematocrit 42.6 % (36.0-46.0); Hemoglobin 14.7 g/dL (12.2-16.2); Lymphocytes # (auto) 2.1 10 ^3/uL (0.4-5.4); Lymphocytes % (auto) 34.3 % (10.0-50.0); Mean Corpuscular Hemoglobin 35.3 pg (28.0-32.0); Mean Corpuscular Hgb Conc. 34.4 g/dL (32.0-36.0); Mean Corpuscular Volume 102.5 fL (80.0-100.0); Neutrophils % (auto) 51.1 % (37.0-80.0); Nucleated Red Blood Cells % 0.1 %; Red Blood Cells 4.16 10^6/uL (4.0-5.20)
[2023-05-26] MEDS: IBUPROFEN 600 MG TAB PO SCH ×2 (06:17→14:21)
[2023-05-26] MEDS: InsuLIN REG 1unit/0.01ml Soln (100units/ml) SC SCH ×3 (06:24→17:00)
[2023-05-26] MEDS: ACCU-CHEK COMFORT CURVE STRIP VI SCH ×3 (06:24→17:57)
[2023-05-26] MEDS: PANTOPRAZOLE 40 MG TAB PO SCH (09:15)
[2023-05-26] MEDS: levETIRAcetam 500 MG TAB PO SCH (09:15)
[2023-05-26] MEDS: amLODIPine BESYLATE 5 MG TAB PO SCH (09:16)
[2023-05-26] MEDS: ENOXAPARIN SOD 40 MG/0.4 ML SYRINGE SC SCH (09:16)
[2023-05-26] MEDS: cefTRIAXone 1GM/50ML D5W 50 ML IV SCH (09:17)
[2023-05-26] MEDS ORDERED: FUROSEMIDE 100 MG/10ML VIAL IV ONE (15:45)
[2023-05-26] MEDS ORDERED: NAPR-746 PO (15:58)
== END 2023-05-26 21:00 | disposition home or self-care (01) | DRG 603 ==
LOC: ER 18:53 → OVERFLOW 23:40 → CENTRAL 05-24 09:46
PROVIDERS: ADMIT Internal Medicine; ATTEND Student in an Organized Health Care Education/Training Program
DX: L03.116 Cellulitis of left lower limb (principal); N39.0 Urinary tract infection, site not specified; I10 Essential (primary) hypertension; F17.210 Nicotine dependence, cigarettes, uncomplicated; F41.9 Anxiety disorder, unspecified; K21.9 Gastro-esophageal reflux disease without esophagitis; E11.9 Type 2 diabetes mellitus without complications; M21.372 Foot drop, left foot; E78.5 Hyperlipidemia, unspecified; Z82.49 Family history of ischemic heart disease and other diseases of the circulatory system; Z83.3 Family history of diabetes mellitus; Z88.1 Allergy status to other antibiotic agents; Z91.040 Latex allergy status; R56.9 Unspecified convulsions
CPT/HCPCS: 36415; 72148; 73562; 73610; 73700; 73721; 80048; 80053; 81001; 81025; 82962; 83036; 83605; 83880; 84550; 85025; 85652; 86141; 87040; 87086; 87088; 87186; 93925; 93926; 93971; G0378; J0696; J1956

== ENCOUNTER → 2023-06-26 | Outpatient (CLI) | payer BC ==
[~2023-06-26] MED LIST changes: +AMLO1TAB22 PO; +ATOR20TA50 PO; +EPIN0.3I24 IM; +LEVE500T3 PO; +MELO-335 PO; +NAPR-746 PO
[2023-06-26 09:26] LABS: Eosinophils # (auto) 0.2 10 ^3/uL (0-0.8); Hemoglobin 12.5 g/dL (12.2-16.2); Lymphocytes # (auto) 1.1 10 ^3/uL (0.4-5.4); Monocytes # (auto) 0.5 10 ^3/uL (0-1.3); Neutrophils # (auto) 3.5 10 ^3/uL (1.6-8.6); White Blood Cell 5.3 10^3/uL (4.4-10.8)
[2023-06-26 09:28] LABS: Basophils # (auto) 0.1 10 ^3/uL (0-0.2); Basophils % (auto) 1.2 % (0.0-2.0); Eosinophils % (auto) 3.6 % (0.0-7.0); Hematocrit 36.8 % (36.0-46.0); Lymphocytes % (auto) 20.4 % (10.0-50.0); Mean Corpuscular Hemoglobin 35.2 pg (28.0-32.0); Mean Corpuscular Volume 103.6 fL (80.0-100.0); Monocytes % (auto) 9.3 % (0.0-12.0); Neutrophils % (auto) 65.5 % (37.0-80.0); Red Blood Cells 3.56 10^6/uL (4.0-5.20); Red Cell Distribution Width 13.1 % (11.8-14.3)
[2023-06-26 09:58] LABS: Alanine Aminotransferase 22 U/L (7-40); Albumin 4.1 g/dL (3.2-4.8); Alkaline Phosphatase 71 U/L (46-116); Anion Gap 7 (5-15); Aspartate Aminotransferase 23 U/L (13-40); BUN/Creatinine Ratio 12.7 (10.0-20.0); Bilirubin, Total 0.5 mg/dL (0.2-1.0); Blood Urea Nitrogen 8 mg/dL (9-23); CRP High Sensitivity 0.03 mg/dL (<1.0); Calcium 9.1 mg/dL (8.5-10.1); Carbon Dioxide 26 mmol/L (20-30); Chloride 105 mmol/L (98-107); Glucose 81 mg/dL (74-106); Sodium 138 mmol/L (136-145); Total Protein 6.5 g/dL (5.7-8.2)
[2023-06-26 10:04] LABS: Urine Bacteria FEW /hpf (None Seen); Urine Blood Negative /uL (Negative); Urine Clarity HAZY (Clear); Urine Color Yellow (Yellow); Urine Protein, UAD Negative (Negative); Urine Specific Gravity 1.016 (1.001-1.035); Urine Urobilinogen Normal (Negative); Urine WBC 181 /hpf (0 - 5)
[2023-06-26 10:23] LABS: Erythrocyte Sedimentation Rate 5 mm/hr (0-20)
== END | disposition home or self-care (01) ==
LOC: LAB 09:12
PROVIDERS: ATTEND Internal Medicine
DX: S83.242A Other tear of medial meniscus, current injury, left knee, initial encounter (principal); E11.9 Type 2 diabetes mellitus without complications; E78.5 Hyperlipidemia, unspecified; X58.XXXA Exposure to other specified factors, initial encounter; Y93.89 Activity, other specified; Y92.89 Other specified places as the place of occurrence of the external cause; Y99.8 Other external cause status
CPT/HCPCS: 36415; 80053; 81001; 83036; 85025; 85652; 86141

== ENCOUNTER → 2023-09-15 | Outpatient (CLI) | payer BC ==
[2023-09-15 14:42] LABS: Erythrocyte Sedimentation Rate 4 mm/hr (0-20)
== END | disposition home or self-care (01) ==
LOC: LAB 13:16
PROVIDERS: ATTEND Internal Medicine Cardiovascular Disease
DX: M32.9 Systemic lupus erythematosus, unspecified (principal); L95.9 Vasculitis limited to the skin, unspecified
CPT/HCPCS: 36415; 85652; 86141; 86235

== ENCOUNTER → 2023-10-12 | Outpatient (CLI) | payer BC ==
[2023-10-12 14:22] LABS: Triglycerides 237 mg/dL (< 150)
[2023-10-12 14:23] LABS: LDL Cholesterol 79 mg/dL (< 100)
[2023-10-12 14:24] LABS: Cholesterol 159 mg/dL (< 200); HDL Cholesterol 49 mg/dL (40-59)
== END | disposition home or self-care (01) ==
LOC: LAB 13:33
PROVIDERS: ATTEND Internal Medicine
DX: E78.5 Hyperlipidemia, unspecified (principal)
CPT/HCPCS: 36415; 80061

== ENCOUNTER → 2023-10-16 | Outpatient (CLI) | payer BC ==
[~2023-10-16] MED LIST changes: +LEVE500T40 PO; +VERI5TAB PO
[2023-10-16 09:45] VITALS: BP 138/92; PULSE 93; RESP 18; O2SAT 98
[2023-10-16 10:00] VITALS: BP 143/90; PULSE 92; RESP 18; O2SAT 98
== END | disposition home or self-care (01) ==
LOC: CHF HDHVI 09:37
PROVIDERS: ATTEND Internal Medicine Cardiovascular Disease
DX: Z01.818 Encounter for other preprocedural examination (principal); I73.9 Peripheral vascular disease, unspecified
CPT/HCPCS: 93005; G0463

== ENCOUNTER 2023-10-19 06:40 | Day surgery (SDC) | payer BC ==
[2023-10-16 10:54] LABS: Basophils # (auto) 0.1 10 ^3/uL (0-0.2); Eosinophils # (auto) 0.2 10 ^3/uL (0-0.8); Hemoglobin 13.4 g/dL (12.2-16.2); Lymphocytes # (auto) 1.2 10 ^3/uL (0.4-5.4); Lymphocytes % (auto) 20.1 % (10.0-50.0); Mean Corpuscular Hemoglobin 36.8 pg (28.0-32.0); Monocytes # (auto) 0.5 10 ^3/uL (0-1.3); White Blood Cell 5.8 10^3/uL (4.4-10.8)
[2023-10-16 10:58] LABS: Basophils % (auto) 1.2 % (0.0-2.0); Eosinophils % (auto) 3.4 % (0.0-7.0); Hematocrit 39.5 % (36.0-46.0); Mean Corpuscular Hgb Conc. 33.9 g/dL (32.0-36.0); Mean Corpuscular Volume 108.6 fL (80.0-100.0); Monocytes % (auto) 8.8 % (0.0-12.0); Neutrophils # (auto) 3.8 10 ^3/uL (1.6-8.6); Neutrophils % (auto) 66.5 % (37.0-80.0); Red Blood Cells 3.63 10^6/uL (4.0-5.20); Red Cell Distribution Width 12.7 % (11.8-14.3)
[2023-10-16 11:05] LABS: INR 0.98 (0.9-1.15); Partial Thromboplastin Time 29.3 SEC (24.5-34.5); Prothrombin Time 10.3 sec (9.3-11.8)
[2023-10-16 11:22] LABS: Alanine Aminotransferase 47 U/L (7-40); Albumin 4.3 g/dL (3.2-4.8); Alkaline Phosphatase 114 U/L (46-116); Anion Gap 4 (5-15); Aspartate Aminotransferase 22 U/L (13-40); BUN/Creatinine Ratio 15.4 (10.0-20.0); Bilirubin, Total 0.4 mg/dL (0.2-1.0); Blood Urea Nitrogen 10 mg/dL (9-23); Calcium 9.4 mg/dL (8.5-10.1); Carbon Dioxide 26 mmol/L (20-30); Chloride 109 mmol/L (98-107); Glucose 97 mg/dL (74-106); Potassium 4.7 mmol/L (3.5-5.1); Sodium 139 mmol/L (136-145); Total Protein 6.6 g/dL (5.7-8.2)
[~2023-10-19] VITALS: Ht 175.3 cm; Wt 77.1 kg
[2023-10-19] VITALS (10 sets, daily range): BP systolic 122–140; BP diastolic 89–98; PULSE 66–86; RESP 15–20; TEMP 97.8; O2SAT 95–98
[~2023-10-19 06:40] MED LIST changes: -AMLO1TAB22 PO; -CYCL-839 PO; -ELUX1TAB2 PO; -MELO-335 PO; -NAPR-746 PO
[2023-10-19] MEDS ORDERED: LIDOCAINE 2%HCL (LOCAL ANESTH.) INJ 20ML MDV ONE (07:44)
[2023-10-19] MEDS ORDERED: IODIXANOL 320MG/ML 100ML BTL IV ONE ×2 (07:45→08:25)
[2023-10-19] MEDS ORDERED: fentaNYL CITRATE 100 MCG/2 ML VL ONE (08:24)
[2023-10-19] MEDS ORDERED: ANGIOMAX 250 MG VIAL IV ONE (08:24)
[2023-10-19] MEDS ORDERED: SODIUM CHL 0.9% 0 ML ONE (08:25)
[2023-10-19] MEDS ORDERED: MIDAZOLAM HCL 2MG/2ML 2ml VIAL (1mg/ml) ONE (08:25)
[2023-10-19] MEDS ORDERED: IOHEXOL 350 MG/ML 100ML IJ ONE (08:30)
== END 2023-10-19 11:50 | disposition home or self-care (01) ==
LOC: CATH 06:40
PROVIDERS: ATTEND Internal Medicine Cardiovascular Disease
DX: I73.00 Raynaud's syndrome without gangrene (principal); I70.219 Atherosclerosis of native arteries of extremities with intermittent claudication, unspecified extremity; I10 Essential (primary) hypertension; Z79.899 Other long term (current) drug therapy; Z98.890 Other specified postprocedural states
CPT/HCPCS: 36247; 36415; 75716; 80053; 84702; 85025; 85610; 85730; C1769; C1887; C1894; J1644; J2250; J3010; Q9967; 99152

== ENCOUNTER 2024-06-11 18:09 | Inpatient (IN) | payer BC ==
[~2024-06-11] VITALS: Ht 177.8 cm; Wt 94.0 kg
[~2024-06-11 18:09] MED LIST changes: -SUCR1TAB22 OR; +SUCR1TAB31 OR
[2024-06-11] MEDS ORDERED: LORazepam 2MG/ML-1ML VIAL IM ONE (18:30)
[2024-06-11 18:54] LABS: Basophils # (auto) 0.1 10 ^3/uL (0-0.2); Eosinophils # (auto) 0.2 10 ^3/uL (0-0.8); Eosinophils % (auto) 3.2 % (0.0-7.0); Hematocrit 40.2 % (36.0-46.0); Hemoglobin 14.2 g/dL (12.2-16.2); Lymphocytes % (auto) 15.7 % (10.0-50.0); Mean Corpuscular Hemoglobin 36.2 pg (28.0-32.0); Mean Corpuscular Hgb Conc. 35.2 g/dL (32.0-36.0); Mean Corpuscular Volume 102.9 fL (80.0-100.0); Monocytes # (auto) 0.6 10 ^3/uL (0-1.3); Monocytes % (auto) 9.3 % (0.0-12.0); Neutrophils # (auto) 4.5 10 ^3/uL (1.6-8.6); Neutrophils % (auto) 70.8 % (37.0-80.0); Nucleated Red Blood Cells % 0.3 %; Platelet Count (auto) 198 10^3/uL (140-450); Red Blood Cells 3.91 10^6/uL (4.0-5.20); Red Cell Distribution Width 13.1 % (11.8-14.3); White Blood Cell 6.4 10^3/uL (4.4-10.8)
[2024-06-11 19:14] LABS: Alanine Aminotransferase 41 U/L (7-40); Albumin 4.6 g/dL (3.2-4.8); Alkaline Phosphatase 125 U/L (46-116); Anion Gap 12 (5-15); Aspartate Aminotransferase 61 U/L (13-40); BUN/Creatinine Ratio 8.5 (10.0-20.0); Blood Alcohol 4.7 mg/dL (<10); Blood Urea Nitrogen 8 mg/dL (9-23); Calcium 9.8 mg/dL (8.7-10.4); Carbon Dioxide 20 mmol/L (20-30); Chloride 103 mmol/L (98-107); Glucose 147 mg/dL (74-106); Potassium 3.4 mmol/L (3.5-5.1); Sodium 135 mmol/L (136-145)
[2024-06-11 19:15] LABS: Bilirubin, Total 1.2 mg/dL (0.2-1.0); Total Protein 7.5 g/dL (5.7-8.2)
[2024-06-11] MEDS: LORazepam 2MG/ML-1ML VIAL IV ONE (21:59)
[2024-06-11 22:40] VITALS: PULSE 138; RESP 28; O2SAT 100
[2024-06-11 23:35] LABS: Urine Bacteria MOD /hpf (None Seen); Urine Blood Negative /uL (Negative); Urine Clarity Clear (Clear); Urine Color Light-Orange (Yellow); Urine Hyaline Cast FEW /lpf (0 - 2); Urine Mucus FEW (None Seen); Urine Protein, UAD 1+ (Negative); Urine Specific Gravity 1.029 (1.001-1.035); Urine Urobilinogen Normal (Negative); Urine WBC 16 /hpf (0 - 5)
[2024-06-11 23:45] LABS: Amphetamine Screen, Urine Neg (NEGATIVE)
[2024-06-11] MEDS ORDERED: MORPHINE SULFATE INJ 2 MG/ml SYRG IV PRN (23:45)
[2024-06-11] MEDS ORDERED: DEXTROSE (50%) 50ML SYRG IV PRN (23:45)
[2024-06-11] MEDS ORDERED: chlordiazePOXIDE HCL 25 MG CAP PO SCH (23:45)
[2024-06-11] MEDS ORDERED: TEMAZEPAM 15 MG CAP PO PRN (23:45)
[2024-06-11] MEDS ORDERED: ONDANSETRON HCL 4 MG/2 ML VIAL IV PRN (23:45)
[2024-06-11] MEDS ORDERED: NITROGLYCERIN 0.4 MG SL TAB SL PRN (23:45)
[2024-06-11 23:46] LABS: Barbiturate Scree,Urine Neg (NEGATIVE); Benzodiazephine Screen, Urine Neg (NEGATIVE); Cannabinoid Screen, Urine Pos (NEGATIVE); Cocaine Screen, Urine Neg (NEGATIVE); Opiate Scree,Urine Neg (NEGATIVE); Phencyclidine Screen, Urine Neg (NEGATIVE)
[2024-06-12 05:41] LABS: Alanine Aminotransferase 34 U/L (7-40); Albumin 4.2 g/dL (3.2-4.8); Alkaline Phosphatase 110 U/L (46-116); Anion Gap 7 (5-15); Aspartate Aminotransferase 46 U/L (13-40); BUN/Creatinine Ratio 10.1 (10.0-20.0); Blood Urea Nitrogen 8 mg/dL (9-23); Calcium 9.4 mg/dL (8.7-10.4); Carbon Dioxide 24 mmol/L (20-30); Chloride 105 mmol/L (98-107); Glucose 119 mg/dL (74-106); Potassium 3.7 mmol/L (3.5-5.1); Sodium 136 mmol/L (136-145)
[2024-06-12 05:42] LABS: Bilirubin, Total 0.8 mg/dL (0.2-1.0); Total Protein 6.8 g/dL (5.7-8.2)
[2024-06-12] MEDS: PANTOPRAZOLE 40 MG TAB PO SCH (06:12)
[2024-06-12] MEDS: InsuLIN REG 1unit/0.01ml Soln (100units/ml) SC SCH ×2 (07:00→22:00)
[2024-06-12] MEDS: ACCU-CHEK COMFORT CURVE STRIP VI SCH (07:20)
[2024-06-12 07:35] VITALS: PULSE 135; RESP 18; O2SAT 99
[2024-06-12] MEDS: chlordiazePOXIDE HCL 25 MG CAP PO SCH (09:55)
[2024-06-12] MEDS: GABAPENTIN 300 MG CAP PO SCH (09:55)
[2024-06-12] MEDS: NIFEdipine ER 30 MG TAB PO SCH (09:55)
[2024-06-12] MEDS: FOLIC ACID 1 MG TAB PO SCH (09:56)
[2024-06-12] MEDS: THIAMINE HCL 100 MG TAB PO SCH (09:56)
[2024-06-12] MEDS: levETIRAcetam 500 MG TAB PO SCH (09:56)
[2024-06-12] MEDS ORDERED: levETIRAcetam 500 MG TAB PO SCH (10:00)
[2024-06-12] MEDS: SODIUM CHLORIDE 0.9% 1,000 ML IV ONE (14:43)
[2024-06-12] MEDS: SODIUM CHLORIDE 0.9% 1,000 ML IV SCH (15:35)
[2024-06-12] MEDS: cefTRIAXone 1GM/50ML D5W 50 ML IV ONE (18:47)
[2024-06-12 19:30] VITALS: PULSE 120; RESP 20; O2SAT 95
[2024-06-12] MEDS: ATORVASTATIN 20 MG TAB PO SCH (22:00)
[2024-06-12 22:30] VITALS: BP 139/87; PULSE 115; PULSE 20; RESP 20; TEMP 98.2; O2SAT 96; O2SAT 98
[2024-06-12] MEDS ORDERED: GABA-1250 PO (23:53)
[2024-06-12] MEDS ORDERED: DULO1CAP5 PO (23:53)
[2024-06-12] MEDS ORDERED: INSUINJ37 SC (23:53)
[2024-06-12] MEDS ORDERED: AML5T PO (23:53)
[2024-06-12] MEDS ORDERED: SILD50TA PO (23:53)
[2024-06-12] MEDS ORDERED: APIX2.5T PO (23:55)
[2024-06-13] VITALS (8 sets, daily range): BP systolic 120–145; BP diastolic 84–98; PULSE 90–121; RESP 18–20; TEMP 98–98.7; O2SAT 97–100
[2024-06-13 07:03] LABS: Basophils # (auto) 0 10 ^3/uL (0-0.2); Basophils % (auto) 0.9 % (0.0-2.0); Monocytes # (auto) 0.4 10 ^3/uL (0-1.3); Red Cell Distribution Width 13.1 % (11.8-14.3)
[2024-06-13 07:06] LABS: Anion Gap 7 (5-15); Carbon Dioxide 23 mmol/L (20-30); Chloride 107 mmol/L (98-107); Potassium 3.1 mmol/L (3.5-5.1); Sodium 137 mmol/L (136-145)
[2024-06-13 07:07] LABS: Calcium 9.2 mg/dL (8.7-10.4); Eosinophils # (auto) 0.2 10 ^3/uL (0-0.8); Eosinophils % (auto) 4.8 % (0.0-7.0); Hematocrit 36.9 % (36.0-46.0); Lymphocytes % (auto) 19.5 % (10.0-50.0); Mean Corpuscular Hemoglobin 37.2 pg (28.0-32.0); Mean Corpuscular Hgb Conc. 35.1 g/dL (32.0-36.0); Mean Corpuscular Volume 105.8 fL (80.0-100.0); Monocytes % (auto) 7.2 % (0.0-12.0); Neutrophils # (auto) 3.4 10 ^3/uL (1.6-8.6); Neutrophils % (auto) 67.6 % (37.0-80.0); Platelet Count (auto) 148 10^3/uL (140-450); Red Blood Cells 3.49 10^6/uL (4.0-5.20)
[2024-06-13 07:12] LABS: BUN/Creatinine Ratio 12.5 (10.0-20.0); Blood Urea Nitrogen 7 mg/dL (9-23); Glucose 109 mg/dL (74-106)
[2024-06-13 08:44] LABS: Hepatitis B Surface Antigen Negative (Negative)
[2024-06-13] MEDS: SODIUM CHLORIDE 0.9% 1,000 ML IV SCH (08:54)
[2024-06-13] MEDS: cefTRIAXone 1GM/50ML D5W 50 ML IV SCH (08:54)
[2024-06-13 09:05] LABS: Hepatitis A Ab IgM Negative
[2024-06-13 09:06] LABS: Hepatitis B Core IgM Negative; Hepatitis C Antibody Negative (Negative)
[2024-06-13] MEDS: chlordiazePOXIDE HCL 25 MG CAP PO SCH (10:04)
[2024-06-13] MEDS: POTASSIUM CHL 20 Meq TABLET PO ONE (10:12)
[2024-06-13] MEDS: DIGOXIN 0.125 MG TAB PO SCH (15:22)
[2024-06-13] MEDS: APIXABAN 2.5 MG TAB PO SCH (22:36)
[2024-06-13] MEDS: METOPROLOL SUCCINATE XL 50 MG TAB PO SCH (22:39)
[2024-06-14] VITALS (7 sets, daily range): BP systolic 132–144; BP diastolic 56–100; PULSE 75–100; RESP 16–20; TEMP 97.5–98; O2SAT 97–100
[2024-06-14] MEDS: chlordiazePOXIDE HCL 25 MG CAP PO SCH (05:48)
[2024-06-14 06:16] LABS: Basophils # (auto) 0 10 ^3/uL (0-0.2); Basophils % (auto) 0.7 % (0.0-2.0); Eosinophils # (auto) 0.2 10 ^3/uL (0-0.8); Lymphocytes # (auto) 1.2 10 ^3/uL (0.4-5.4); Monocytes # (auto) 0.3 10 ^3/uL (0-1.3); Platelet Count (auto) 161 10^3/uL (140-450)
[2024-06-14 06:23] LABS: Eosinophils % (auto) 4.5 % (0.0-7.0); Hematocrit 35.9 % (36.0-46.0); Hemoglobin 12.4 g/dL (12.2-16.2); Mean Corpuscular Hemoglobin 36.6 pg (28.0-32.0); Mean Corpuscular Hgb Conc. 34.5 g/dL (32.0-36.0); Mean Corpuscular Volume 106.2 fL (80.0-100.0); Monocytes % (auto) 5.7 % (0.0-12.0); Neutrophils # (auto) 3.5 10 ^3/uL (1.6-8.6); Neutrophils % (auto) 66.1 % (37.0-80.0); Nucleated Red Blood Cells % 0.2 %; Red Blood Cells 3.38 10^6/uL (4.0-5.20); Red Cell Distribution Width 13.6 % (11.8-14.3); White Blood Cell 5.3 10^3/uL (4.4-10.8)
[2024-06-14 06:28] LABS: Alanine Aminotransferase 33 U/L (7-40); Albumin 3.8 g/dL (3.2-4.8); Alkaline Phosphatase 104 U/L (46-116); Anion Gap 7 (5-15); Aspartate Aminotransferase 47 U/L (13-40); Bilirubin, Total 0.4 mg/dL (0.2-1.0); Blood Urea Nitrogen 9 mg/dL (9-23); Calcium 9.5 mg/dL (8.7-10.4); Carbon Dioxide 22 mmol/L (20-31); Chloride 109 mmol/L (98-107); Glucose 96 mg/dL (74-106); Potassium 3.4 mmol/L (3.5-5.1); Sodium 138 mmol/L (136-145)
[2024-06-14 06:29] LABS: Total Protein 6.2 g/dL (5.7-8.2)
[2024-06-14] MEDS ORDERED: METO25TA93 PO (16:25)
[2024-06-14] MEDS ORDERED: CIPR-173 PO (16:26)
== END 2024-06-14 17:20 | disposition home or self-care (01) | DRG 641 ==
LOC: ER 18:09 → TELE 23:57 → TELE-EAST 06-12 21:58
PROVIDERS: ADMIT Internal Medicine Geriatric Medicine; ATTEND Internal Medicine Geriatric Medicine
DX: E86.0 Dehydration (principal); N30.00 Acute cystitis without hematuria; F10.139 Alcohol abuse with withdrawal, unspecified; E78.5 Hyperlipidemia, unspecified; K21.9 Gastro-esophageal reflux disease without esophagitis; I10 Essential (primary) hypertension; F41.9 Anxiety disorder, unspecified; E11.40 Type 2 diabetes mellitus with diabetic neuropathy, unspecified; F17.210 Nicotine dependence, cigarettes, uncomplicated; R79.89 Other specified abnormal findings of blood chemistry; G40.909 Epilepsy, unspecified, not intractable, without status epilepticus; Y90.9 Presence of alcohol in blood, level not specified; Z88.8 Allergy status to other drugs, medicaments and biological substances; Z88.1 Allergy status to other antibiotic agents; Z91.040 Latex allergy status; Z82.49 Family history of ischemic heart disease and other diseases of the circulatory system
CPT/HCPCS: 36415; 80048; 80053; 80074; 80307; 80320; 81001; 82962; 84443; 84484; 85025; 87086; 87088; 87186; 93005; 93306; 99291; G0378

== ENCOUNTER → 2024-10-09 | Outpatient (CLI) | payer BC, OTHER ==
[~2024-10-09] MED LIST changes: +AML5T PO; +APIX2.5T PO; -ATOR20TA50 PO; +CIPR-173 PO; +DULO1CAP5 PO; +GABA-1250 PO; -HYDR-4902 PO; -IBUP1TAB5 PO; +INSUINJ37 SC; -LACT30003 PO; -LEVE500T40 PO; +METO25TA93 PO; +SILD50TA PO; -VERI5TAB PO
[2024-10-09 10:39] LABS: Urine Bacteria MANY /hpf (None Seen); Urine Blood Negative /uL (Negative); Urine Budding Yeast MODERATE /hpf (None Seen); Urine Clarity Ex.Turbid (Clear); Urine Color Brown (Yellow); Urine Mucus FEW (None Seen); Urine Protein, UAD Negative (Negative); Urine Specific Gravity 1.025 (1.001-1.035); Urine Squamous Epithelial Cell FEW /hpf (<5); Urine Urobilinogen Normal (Negative); Urine WBC 57 /HPF (0-5); Urine pH 5.5 (5.0-9.0)
== END | disposition home or self-care (01) ==
LOC: LAB 10:22
PROVIDERS: ATTEND Internal Medicine
DX: R19.7 Diarrhea, unspecified (principal)
CPT/HCPCS: 81001; 82274; 87045; 87427

== ENCOUNTER → 2024-11-19 | Outpatient (CLI) | payer BC | END | disposition home or self-care (01) | LOC: Rad HDHVI 13:56 | PROVIDERS: ATTEND Internal Medicine Cardiovascular Disease | DX: I10 Essential (primary) hypertension (principal) | CPT/HCPCS: 93306 ==